=== PATIENT | male | born 1960 | race Caucasian/White ===

== ENCOUNTER 2020-06-25 13:14 | Outpatient (CLI) | payer BC, SELFPAY ==
--- NOTE | 2020-06-25 13:20 | XR_ITS ---
WS: [id number] Left foot, 3 views, 06/25/2020 Clinical Data: left heel pain Comparison: None. Findings: No fractures or dislocations are seen. No bone destruction or erosion is noted. The joint spaces and soft tissues are normal. There is a plantar spur and an Achilles spur. XR/XR foot LT min 3V* [id number] Impression: Calcaneal spurs.
== END 2020-06-25 13:15 | disposition home or self-care (01) ==
PROVIDERS: PCP Family Medicine; Visit Provider Family Medicine
DX: M77.32 Calcaneal spur, left foot (principal)
CPT/HCPCS: 73630

== ENCOUNTER → 2020-07-22 09:03 | Outpatient (BNVA) | payer BC, SELFPAY | PROVIDERS: PCP Family Medicine; Visit Provider Family Medicine | DX: E78.5 Hyperlipidemia, unspecified (principal); N52.9 Male erectile dysfunction, unspecified | CPT/HCPCS: 80053; 80061; 84403; 85025 ==

== ENCOUNTER 2020-08-30 14:02 | Outpatient (CLI) | payer BC, SELFPAY | END 2020-08-30 14:03 | disposition home or self-care (01) | LOC: SPT 14:02 | PROVIDERS: PCP Family Medicine; Visit Provider Podiatrist Foot & Ankle Surgery | DX: Z46.89 Encounter for fitting and adjustment of other specified devices (principal); M72.2 Plantar fascial fibromatosis | CPT/HCPCS: 97760; L4397 ==

== ENCOUNTER 2021-01-02 01:39 | Emergency (ER) | payer BC, SELFPAY ==
[2021-01-02 01:43] VITALS: BP 175/88; PULSE 72; RESP 18; TEMP 36.7; O2SAT 96; BMI 33.0
[2021-01-02 01:46] VITALS: BP 156/84; PULSE 69; RESP 16; O2SAT 95
--- NOTE | 2021-01-02 01:50 | XRR_ITS ---
PROCEDURE INFORMATION: Exam: XR Left Knee Exam date and time: 01/02/2021 1:50 AM Age: 60 years old Clinical indication: Pain; Swelling, leg or foot; Knee; Left; Prior surgery; Surgery date: 6+ months; Surgery type: Meniscus; Additional info: Pain, swelling TECHNIQUE: Imaging protocol: XR Left knee. Views: 3 views. COMPARISON: No relevant prior studies available. FINDINGS: Bones/joints: Mild medial compartment joint space narrowing. Moderate tricompartmental osteophytes. Large joint effusion. No acute fracture. Soft tissues: Visible soft tissues are unremarkable. XR/XR knee LT 3V* 04502 IMPRESSION: Large joint effusion and tricompartmental degenerative disease. Radiation Dose CTDIVOL = (mGy): DLP = (mGy-cm)
--- NOTE | 2021-01-02 01:51 | W.ED.EXTPRO ---
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 Says he cannot ambulate due to the pain. That is why he called the ambulance. Patient did arrive by ambulance. Denies any heat to the knee but says it has swelled a lot in the last day MD Complaint: joint swelling Onset (ago): day(s) Pain Consistency: constant Location: left and knee Severity scale (1-10): 9 Quality: aching Radiation: proximal Relieving factors: immobilization Exacerbating factors: range of motion and weight bearing Associated symptoms: Reports no associated symptoms; Deny chest pain, fever(s) or rash Review of Systems Const: Denies: fever(s), chills or body aches Eyes: Denies: change in vision or blurry vision ENMT: Denies: throat pain or nasal congestion Card: Denies: chest pain or dyspnea on exertion Resp: Denies: dyspnea, productive cough or non-productive cough GI: Denies: abdominal pain, nausea or vomiting : Denies: difficulty urinating Musc: Reports: joint pain (Left knee) and joint swelling; Denies: extremity pain Skin/Breast: Denies: rash Neuro: Denies: headache(s) Psych: Denies: anxiety or depression Daniel/Lymph: Denies: easy bruising [facility] ED PFSH: Medical History (Updated 01/02/21 @ 02:37 by RADHIKA Carbajal) Allergy to bee sting Bone spur of left foot Bone spur of right foot History of COVID-19 Hyperlipidemia Temporal arteritis syndrome Surgical History H/O knee surgery Left meniscus. Right meniscus. H/O removal of cyst BEHIND EAR History of appendectomy History of back surgery L4-L5 Family History Family/Other Cancer Social History (Reviewed 11/26/20 @ 13:19 by DALI Hudson Smoking and tobacco status: never smoked Alcohol intake: never Physical Exam Const: COMMON NORMALS: no acute distress, average body habitus and patient oriented x3 HENMT: COMMON NORMALS: normocephalic HEAD & SCALP: normal to inspection and normocephalic FACE & SINUS: normal facial exam Eye: COMMON NORMALS: conjunctivae normal GENERAL EYE: appearance normal, both eyes and all related structures CONJUNCTIVA: Yes conjunctivae normal Neck/C-Spine: COMMON NORMALS: no JVD Chest: COMMONS NORMALS: normal inspection of the chest Resp: COMMON NORMALS: normal respiratory effort and clear to auscultation bilaterally AUSCULTATION: clear to auscultation bilaterally Cardio: COMMON NORMALS: no JVD, regular rate and regular rhythm RATE: regular rate RHYTHM: regular rhythm GI: COMMON NORMALS: Normal to inspection, nondistended, normoactive bowel sounds present Extremity: COMMON NORMALS: normal to inspection and full ROM LEFT LOWER EXTREMITY: Yes knee joint (Appear swollen, tender to the suprapatellar area, decreased range of motion) Left knee: Yes other (No erythema or excess heat noted to the joint.) Neuro: COMMON NORMALS: patient oriented x3 Procedures Joint Aspiration/Injection Joint Asp./Inject. 1: Time Out Performed: Yes Side of body: left Joint Aspirated: knee Ultrasound Guidance: No Skin Prep: Povidone-Iodine1% Local Anesthetic: lidocaine 1% Amount of anesthesia used (mL): 3 Needle Size Used: 18G Fluid Obtained: turbid Total fluid obtained (mL): 60 Medication Injected, if any: Methylprednisolone Amount of medication injected (mL): 1 Patient Tolerated Procedure: well Complications: none Course Vital Signs: Vital signs: Vital Signs Temperature 98.1 F 01/02/21 01:43 Pulse Rate 68 01/02/21 02:55 Respiratory Rate 16 01/02/21 02:55 Blood Pressure 152/76 01/02/21 02:55 Pulse Oximetry 94 01/02/21 02:55 MDM - Extremity (Nontraumatic) MDM Narrative: Medical decision making narrative: Left knee joint effusion with arthritis. Joint aspiration was done under guidance Dr. Gibbs. 60 mils of turbid fluid was withdrawn. 40 of Depo-Medrol +2 and half mils lidocaine 1% was injected back into the knee. Patient tolerated procedure well. Aspiration fluid study reviewed from lab, 27,000 wbc, minimal rbc. Patient encouraged follow-up Dr. Balderas and discuss possible orthopedic referral Lab Data: Labs: Lab Results 01/02/21 02:36 Synovial Color Yellow (PALE YELLOW) Synovial Appearanc e Cloudy (CLEAR) Synovial WBC 05469 /uL H /uL (0-150) Synovial RBC 5 10^3/uL H 10^3/ uL (0-0) Synovial Mononucle ar 2.585 10^3/uL 10^ 3/uL Synov Polynuclear WBCs 24.482 10^3/uL 10 ^3/uL Synovial Other Melissa ls Not Reportable Synovial Polynucle ar % 90.500 % % Synovial Mononucle ar % 9.500 % % Path Cons w/Slide Yes Discharge Plan Discharge Patient Disposition: Home Clinical Impression: Effusion of knee joint, left, Tricompartment osteoarthritis of left knee Condition: Stable Prescriptions: New tramadol 50 mg tablet 50 mg PO TID PRN (Reason: pain) Qty: 7 RF: 0 No Action (DME) Night splint to the left foot See Rx Instructions .Route .MEDSUPPLY Qty: 1 RF: 0 epinephrine [EpiPen 2-Sarabjit] 0.3 mg/0.3 mL auto-injector 0.3 mg IM Q10M PRN (Reason: anaphylaxis) Qty: 2 RF: 0 atorvastatin 40 mg tablet 40 mg PO .AT BEDTIME Qty: 90 RF: 1 aspirin 81 mg tablet,delayed release (DR/EC) 81 mg PO DAILY RF: 0 cholecalciferol (vitamin D3) 25 mcg (1,000 unit) capsule 25 mcg PO DAILY RF: 0 arginine (L-arginine) 500 mg capsule PO RF: 0 Discharge Orders: Discharge ED (Routine); Ordered 01/02/21 Ordered By: Adonis Sawant Referrals: Tiara Balderas DO [Primary Care Provider] - Discharge Diet: Usual diet Discharge Activity: Increase activity as tolerated Patient Instructions: Osteoarthritis (ED), Swollen Knee Joint (ED), Opioid Safety Activity Restrictions/Additional Instructions: Follow-up with medical provider as directed. Take medications as prescribed. Return to the ER or your medical provider if condition worsens. Please read and understand discharge instructions. If any questions ask please. 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 Right meniscus. H/O removal of cyst BEHIND EAR History of appendectomy History of back surgery L4-L5 Family History Family/Other Cancer Social History Smoking and tobacco status: never smoked Alcohol intake: never Course Vital Signs: Vital signs: Vital Signs Temperature 98.1 F 01/02/21 01:43 Pulse Rate 68 01/02/21 02:55 Respiratory Rate 16 01/02/21 02:55 Blood Pressure 152/76 01/02/21 02:55 Pulse Oximetry 94 01/02/21 02:55 MDM - Extremity (Nontraumatic) MDM Narrative: Medical decision making narrative: This patient was originally seen by RADHIKA Dahl. I agree with his history, evaluation, and treatment. As synovial fluid analysis showed 90% neutrophils with 27,000 white blood cell count, but in the absence of clinical signs of septic joint, culture obtained on the fluid. Will await results before starting any antibiotics. Close outpatient follow-up as above Lab Data: Labs: Lab Results 01/02/21 02:36 Synovial Color Yellow (PALE YELLOW) Synovial Appearanc e Cloudy (CLEAR) Synovial WBC 57153 /uL H /uL (0-150) Synovial RBC 5 10^3/uL H 10^3/ uL (0-0) Synovial Mononucle ar 2.585 10^3/uL 10^ 3/uL Synov Polynuclear WBCs 24.482 10^3/uL 10 ^3/uL Synovial Other Melissa ls Not Reportable Synovial Polynucle ar % 90.500 % % Synovial Mononucle ar % 9.500 % % Path Cons w/Slide Yes Discharge Plan Discharge Patient Disposition: Home Clinical Impression: Effusion of knee joint, left, Tricompartment osteoarthritis of left knee Condition: Stable Prescriptions: New tramadol 50 mg tablet 50 mg PO TID PRN (Reason: pain) Qty: 7 RF: 0 No Action (DME) Night splint to the left foot See Rx Instructions .Route .MEDSUPPLY Qty: 1 RF: 0 epinephrine [EpiPen 2-Sarabjit] 0.3 mg/0.3 mL auto-injector 0.3 mg IM Q10M PRN (Reason: anaphylaxis) Qty: 2 RF: 0 atorvastatin 40 mg tablet 40 mg PO .AT BEDTIME Qty: 90 RF: 1 aspirin 81 mg tablet,delayed release (DR/EC) 81 mg PO DAILY RF: 0 cholecalciferol (vitamin D3) 25 mcg (1,000 unit) capsule 25 mcg PO DAILY RF: 0 arginine (L-arginine) 500 mg capsule PO RF: 0 Discharge Orders: Discharge ED (Routine); Ordered 01/02/21 Ordered By: Adonis Sawant Referrals: Tiara Balderas DO [Primary Care Provider] - Discharge Diet: Usual diet Discharge Activity: Increase activity as tolerated Patient Instructions: Osteoarthritis (ED), Swollen Knee Joint (ED), Opioid Safety Activity Restrictions/Additional Instructions: Follow-up with medical provider as directed. Take medications as prescribed. Return to the ER or your medical provider if condition worsens. Please read and understand discharge instructions. If any questions ask please. 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
[2021-01-02] MEDS: lidocaine 1% INJ 20 mL INTRADERMA (02:30)
[2021-01-02] MEDS: methylPREDNISolone (DEPO) 40 mg/mL INJ 1 mL IM (02:30)
[2021-01-02] MEDS: TRAMadol 50 mg Tablet PO (02:35)
[2021-01-02 02:40] LABS: RBC Synovial Fluid 5 10^3/uL (0-0); Synovial Fluid Mononuclear # 2.585 10^3/uL; Synovial Fluid Polynuclear # 24.482 10^3/uL; WBC Synovial Fluid 27067 /uL (0-150)
[2021-01-02 02:44] LABS: Appearance Synovial Fluid CLOUDY (CLEAR); Color Synovial Fluid YELLOW (PALE YELLOW); PATH Referal YES
[2021-01-02 02:55] VITALS: BP 152/76; PULSE 68; RESP 16; O2SAT 94
== END 2021-01-02 02:56 | disposition home or self-care (01) ==
PROVIDERS: Emergency Provider Nurse Practitioner Family; PCP Family Medicine
DX: M17.12 Unilateral primary osteoarthritis, left knee (principal); M25.462 Effusion, left knee
CPT/HCPCS: 20610; 73562; 80500; 87070; 87075; 87205; 89050; 96372; 99283; J1030

== ENCOUNTER → 2021-07-12 10:04 | Outpatient (BNVA) | payer BC, SELFPAY | PROVIDERS: PCP Family Medicine; Visit Provider Family Medicine | DX: E78.5 Hyperlipidemia, unspecified (principal); R35.1 Nocturia; N52.9 Male erectile dysfunction, unspecified; N52.8 Other male erectile dysfunction; Z12.11 Encounter for screening for malignant neoplasm of colon | CPT/HCPCS: 80053; 80061; 84153; 84403; 85025 ==

== ENCOUNTER 2022-02-20 08:44 | Day surgery (SDC) | payer BC, SELFPAY ==
[2022-02-17 09:05] VITALS: BMI 31.5
[2022-02-20 09:01] VITALS: BP 139/87; PULSE 70; RESP 18; TEMP 36.1; O2SAT 94
[2022-02-20] MEDS: sodium chloride 0.9% 1,000 ML 30 ML IV (09:06)
--- NOTE | 2022-02-20 10:09 | ANES.PREANE2 ---
Pre-Anesthetic Assessment Height/Weight: Height 1.78 m Weight 99.79 kg Temp Pulse Resp BP Pulse Ox O2 Del Method 97.0 F L 70 18 139/87 94 02/20/22 09:01 02/20/22 09:01 02/20/22 09:01 02/20/22 09:01 02/20/22 09:01 02/20/22 09:01 Preop Diagnosis: screening Operation Date: 02/20/22 10:30 Proposed Procedures p Colonoscopy 22875,Z12.11(Not Applicable) - Jared Muir DO Familial anesthetic complications: none Was Beta Mane taken within 24 hours: N/A Was Clonidine taken within 24 hours: N/A Last intake: Intake Last Liquid Date 02/19/22 Last Liquid Time 22:00 Last Solid Date 02/18/22 Last Solid Time 23:00 Last Intake: 22:00 Social No alcohol and No tobacco Exam alert, oriented x 3, clear to auscultation bilaterally and regular rate & rhythm Airway Submandibular: within normal limits Cervical ROM: within normal limits Mallampati: Class II Dentition: full Pulmonary None reported CV/HEM None reported None reported Hepatic None reported GI None reported Metabolic Morbid Obesity [facility] [place] Lower Back Pain and Osteoarthritis/DJD Neuropsych None reported Anesthetic Plan ASA status: 2 Anesthesia: MAC Medications/Allergies Home Medications Medication Instructions Recorded Confirmed Last Taken Type cholecalciferol (vitamin D3) 25 25 mcg PO DAILY 06/24/20 02/17/22 02/18/22 History mcg (1,000 unit) capsule epinephrine 0.3 mg/0.3 mL 0.3 mg (0.3 mL) IM Q10M PRN 11/26/20 02/20/22 Unknown Rx injection, auto-injector (EpiPen anaphylaxis #2 ea 2-Sarabjit) atorvastatin 80 mg tablet 80 mg PO QPM 02/17/22 02/17/22 02/18/22 History multivitamin 1 tab PO DAILY 02/17/22 02/17/22 02/18/22 History Allergies Allergy/AdvReac Type Severity Reaction Status Date / Time bee venom protein (honey bee) Allergy ALGY-Anaphy Verified 02/17/22 09:02 laxis codeine Allergy RASH Verified 02/17/22 08:59 ibuprofen [From Motrin] Allergy ITCHING Verified 02/17/22 08:59 Penicillins Allergy HIVES Verified 02/17/22 08:59 meperidine [From Demerol] AdvReac Mild STOPPED Verified 02/17/22 08:59 HEART Current Medications Generic Name Dose Route Start Last Admin Trade Name Beatrice PRN Reason Stop Dose Admin Sodium Chloride 1,000 mls @ 30 mls/hr 02/20/22 09:00 02/20/22 09:06 Sodium Chloride 0.9% IV 02/21/22 08:59 30 mls/hr .Q24H HAN Administration PFSH Anesthesia Medical History Allergy to bee sting Bone spur of left foot Bone spur of right foot History of COVID-19 Hyperlipidemia Temporal arteritis syndrome Surgical History H/O knee surgery Left meniscus. Right meniscus. H/O removal of cyst BEHIND EAR History of appendectomy History of back surgery L4-L5 Family History Family/Other Cancer Social History Smoking and tobacco status: never smoked Alcohol intake: never Data Anesthesia Cardiac Studies: No Data to Display
--- NOTE | 2022-02-20 10:35 | P.HP_ITS ---
Providers/Chief Complaint Primary Care Provider: Tiara Balderas DO Chief Complaint: Z12.11 History of Present Illness Drake Romeo is a 61 year old male who is here for a screening colonoscopy. His last colonoscopy was 11 years ago and was within normal limits. He denies any abdominal pain, diarrhea, constipation, hematochezia and/or melena. Denies any family history of colon cancer Review of Systems General: Reports: 10 or more systems reviewed and unremarkable except in HPI and below Medications/Allergies Home Medications Medication Instructions Recorded Confirmed Last Taken Type cholecalciferol (vitamin D3) 25 25 mcg PO DAILY 06/24/20 02/17/22 02/18/22 History mcg (1,000 unit) capsule epinephrine 0.3 mg/0.3 mL 0.3 mg (0.3 mL) IM Q10M PRN 11/26/20 02/20/22 Unknown Rx injection, auto-injector (EpiPen anaphylaxis #2 ea 2-Sarabjit) atorvastatin 80 mg tablet 80 mg PO QPM 02/17/22 02/17/22 02/18/22 History multivitamin 1 tab PO DAILY 02/17/22 02/17/22 02/18/22 History Allergies Allergy/AdvReac Type Severity Reaction Status Date / Time bee venom protein (honey bee) Allergy ALGY-Anaphy Verified 02/17/22 09:02 laxis codeine Allergy RASH Verified 02/17/22 08:59 ibuprofen [From Motrin] Allergy ITCHING Verified 02/17/22 08:59 Penicillins Allergy HIVES Verified 02/17/22 08:59 meperidine [From Demerol] AdvReac Mild STOPPED Verified 02/17/22 08:59 HEART PFSH Acute PFSH: Medical History Allergy to bee sting Bone spur of left foot Bone spur of right foot History of COVID-19 Hyperlipidemia Temporal arteritis syndrome Surgical History H/O knee surgery Left meniscus. Right meniscus. H/O removal of cyst BEHIND EAR History of appendectomy History of back surgery L4-L5 Family History Family/Other Cancer Social History Smoking and tobacco status: never smoked Alcohol intake: never Vitals/I&O/Wt Last Vital Signs Temp 97.0 F L 02/20/22 09:01 Pulse 70 02/20/22 09:01 Resp 18 02/20/22 09:01 BP 139/87 02/20/22 09:01 Pulse Ox 94 02/20/22 09:01 O2 Del Method 02/20/22 09:01 Physical Exam Narrative: General : Patient is well developed , no acute distress, oriented x3 Head : Normal cephalic, a-traumatic. Ears : Pinnae and external canal are normal. Hearing is normal. Eyes : PERRLA, Sclera and injection are normal. No conjunctival discharge. Nose : Mucous membranes are without erythema. Throat : buccal mucosa is normal, gums are without significant recession or hypertrophy. Lungs : Equal chest rise bilaterally, no use of accessory muscles, trachea is midline. Cor : Rate and rhythm are normal. Abdomen : Soft, ND, NT, no g/r/m Extremities : No edema, no cyanosis or clubbing, dorsalis pedis pulses are present bilaterally, non-tender to palpation of calves. Upper extremities are normal bilaterally. Back : non-tender to palpation, no CVA tenderness. Neuro : CN II - XII intact, Upper and lower extremities have equal and full strength A&P Assessment and plan (1) Encounter for screening colonoscopy: Plan Colonoscopy The risks and benefits of the procedure, including bleeding, infection, intestinal perforation requiring surgery, missed lesion were explained to the patient. He is understanding of the risks and wishes to proceed. 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
[2022-02-20 10:58] VITALS: BP 130/81; PULSE 70; RESP 12; TEMP 36.1; O2SAT 97
[2022-02-20 11:07] VITALS: BP 130/83; PULSE 67; RESP 14; O2SAT 98
[2022-02-20 11:26] VITALS: BP 109/72; PULSE 61; RESP 14; O2SAT 92
[2022-02-20 11:32] VITALS: BP 134/78; PULSE 63; RESP 16; O2SAT 93
--- NOTE | 2022-02-20 14:22 | ANE.PACU2 ---
Inpatient post-anesthesia follow up: Airway intact: Yes Vital signs: Temperature 97 F Pulse Rate 63 Respiratory Rate 16 Blood Pressure 134/78 Pulse Oximetry 93 Oxygen Delivery Me thod Room Air Oxygen Flow Rate Fraction of Inspir ed Oxygen Hydration adequate: Yes Nausea and vomiting: No Pain level: 1 Mental status: Baseline
== END 2022-02-20 11:41 | disposition home or self-care (01) ==
PROVIDERS: PCP Family Medicine; Visit Provider Surgery
PROC: 0DJD8ZZ Inspection of Lower Intestinal Tract, Via Natural or Artificial Opening Endoscopic (ICD-10-PCS; CPT 45378; principal; 2022-02-20 10:30)
DX: Z12.11 Encounter for screening for malignant neoplasm of colon (principal); D12.8 Benign neoplasm of rectum; E78.5 Hyperlipidemia, unspecified; Z86.16 Personal history of COVID-19; E66.01 Morbid (severe) obesity due to excess calories; Z68.31 Body mass index [BMI] 31.0-31.9, adult
CPT/HCPCS: 45385; 88305; J2704; J7030

== ENCOUNTER 2022-10-24 17:48 | Emergency (ER) | payer BC, SELFPAY ==
[2022-10-24 17:59] VITALS: BP 173/114; PULSE 68; RESP 16; TEMP 36.5; O2SAT 97; BMI 32.3
--- NOTE | 2022-10-24 18:34 | W.ED.ALLEREA ---
HPI - Allergic Reaction General: Chief complaint: Allergic Reaction Stated complaint: stung, allergic reaction, throat closing History of Present Illness: HPI narrative: 62-year-old male presents emergency room with abnormal throat sensation and shortness of breath after he was stung by yellow jacket. Patient further refused around 4 PM he was walking in the yard when he was stung by yellow jacket around his right ankle. He denies any rash or lesions at this time. Is any chest pain, vomiting, fever or chills. Review of Systems General: Reports: 10 or more systems reviewed and unremarkable except in HPI and below Resp: Reports: dyspnea; Denies: non-productive cough, wheezing, stridor, pain on inspiration, change in phlegm color, hemoptysis or chest congestion Skin/Breast: Reports: other (right ankle swelling and mild redness ) [facility] ED PFSH: Medical History Allergy to bee sting Bone spur of left foot Bone spur of right foot History of COVID-19 Hyperlipidemia Temporal arteritis syndrome Surgical History H/O knee surgery Left meniscus. Right meniscus. H/O removal of cyst BEHIND EAR History of appendectomy History of back surgery L4-L5 Family History Family/Other Cancer Social History Smoking and tobacco status: never smoked Alcohol intake: never Substance/Drug Use: never Physical Exam Const: COMMON NORMALS: no acute distress, average body habitus, patient oriented x3, no limitations, healthy appearing, alert and well nourished HENMT: COMMON NORMALS: normocephalic, atraumatic, hearing grossly normal bilaterally, external ears normal, EAC's normal, TM's normal bilaterally, Normal external nose present, Normal nasal mucous membranes and turbinates present, moist oral mucous membranes, oropharynx normal, dentition normal and gingiva normal HEAD & SCALP: normocephalic and atraumatic NOSE: Normal external nose present and Normal nasal mucous membranes and turbinates present EXTERNAL EAR: Yes external ears normal EXTERNAL AUDITORY CANAL: EAC's normal TYMPANIC MEMBRANE: TM's normal bilaterally Eye: COMMON NORMALS: Equal, round and reactive pupils present, EOMs intact bilaterally, conjunctivae normal, no scleral icterus, no papilledema, normal visual gutiérrez by confrontation and fundi normal bilaterally CONJUNCTIVA: Yes conjunctivae normal PUPIL: Yes Equal, round and reactive pupils present DIRECT OPHTHALMOSCOPY: Yes no papilledema and Yes fundi normal bilaterally Neck/C-Spine: COMMON NORMALS: no JVD Chest: COMMONS NORMALS: normal inspection of the chest, normal palpation of entire chest wall, normal inspection of the breasts and normal palpation of the breasts Breast/axilla inspection: Yes normal inspection of the breasts BREAST/AXILLA PALPATION: Yes normal palpation of the breasts Resp: COMMON NORMALS: normal respiratory effort, No retractions, No use of accessory muscles, clear to auscultation bilaterally and percussion normal AUSCULTATION: clear to auscultation bilaterally PERCUSSION: percussion normal Cardio: COMMON NORMALS: no JVD, regular rate, regular rhythm, S1 normal heart sound present, S2 normal heart sound present, No gallops present (Cardio), No clicks present (Cardio), No murmurs present (Cardio), No rub (Cardio) and Peripheral pulses 2+ throughout RATE: regular rate RHYTHM: regular rhythm HEART SOUNDS: S1 normal heart sound present and S2 normal heart sound present PERIPHERAL PULSES: Peripheral pulses 2+ throughout Neuro: COMMON NORMALS: patient oriented x3 SENSORIUM/ORIENTATION: Yes alert Skin: COMMON NORMALS: no rashes or lesions noted, no wounds, turgor normal, no jaundice, no petechiae and no mottling GENERAL SKIN EXAM: no rashes or lesions noted and turgor normal OTHER: Right right ankle with some mild swelling and hives on the lateral aspect. Course Reevaluation(s): Reevaluation #1: Patient was stable without acute distress. at bedside. Reevaluation #2: Patient was awake alert and was able to drink without any difficulties. Reevaluation #3: Patient has improved significantly without any acute distress. Family at bedside. Vital Signs: Vital signs: Vital Signs Temperature 97.7 F 10/24/22 17:59 Pulse Rate 68 10/24/22 17:59 Respiratory Rate 16 10/24/22 17:59 Blood Pressure 173/114 10/24/22 17:59 Pulse Oximetry 97 10/24/22 17:59 Oxygen Delivery Me thod Room Air 10/24/22 17:59 MDM - Allergic Reaction Medical Decision Making Patient was made comfortable emergency room. Patient was given Benadryl, epi, Solu-Medrol and Pepcid. I discussed the plan and disposition plan with . Patient was monitored here for few hours. Upon reassessment patient was stable with any acute distress. Differential Diagnosis Likely anaphylaxis, allergic reaction, angioedema, contact dermatitis, adverse reaction to drug, viral enanthem and urticaria Lab Data 10/24/22 18:20 10/24/22 18:20 Laboratory Results WBC 11.8 10^3/uL (4.0-10.0) H 10/24/22 18:20 RBC 5.37 10^6/uL (4.1-5.3) H 10/24/22 18:20 Hgb 16.1 g/dL (11.7-16.6) 10/24/22 18:20 Hct 47.9 % (42.0-52.0) 10/24/22 18:20 MCV 89.2 fl (80-94) 10/24/22 18:20 MCH 30.0 pg (28.0-34.0) 10/24/22 18:20 MCHC 33.6 g/dL (30.0-36.0) 10/24/22 18:20 RDW 12.5 % (12.1-15.1) 10/24/22 18:20 Plt Count 243 10^3/cmm (130-400) 10/24/22 18:20 MPV 9.5 fL (7.4-10.4) 10/24/22 18:20 Neut % (Auto) 64.1 % 10/24/22 18:20 Lymph % (Auto) 24.7 % 10/24/22 18:20 [place] % (Auto) 8.9 % 10/24/22 18:20 Eos % (Auto) 1.8 % 10/24/22 18:20 Baso % (Auto) 0.2 % 10/24/22 18:20 Neut # (Auto) 7.54 10^3/uL (1.8-7.7) 10/24/22 18:20 Lymph # (Auto) 2.9 10^3/uL (0.8-4.8) 10/24/22 18:20 [place] # (Auto) 1.1 10^3/uL (0.2-0.9) H 10/24/22 18:20 Eos # (Auto) 0.2 10^3/uL (0.0-0.8) 10/24/22 18:20 Baso # (Auto) 0.0 10^3/uL (0.0-0.1) 10/24/22 18:20 Nucleated RBC % (auto) 0 % 10/24/22 18:20 Nucleated RBCs # 0.0 /100WBC 10/24/22 18:20 Sodium 142 mmol/L (136-145) 10/24/22 18:20 Potassium 4.0 mmol/L (3.5-5.1) 10/24/22 18:20 Chloride 103 mmol/L (98-107) 10/24/22 18:20 Carbon Dioxide 26 mmol/L (22-29) 10/24/22 18:20 Anion Gap 17.0 (5-19) 10/24/22 18:20 BUN 17 mg/dL (8-23) 10/24/22 18:20 Creatinine 0.9 mg/dL (0.7-1.2) 10/24/22 18:20 GFR Calculation 85.5 mL/min (90-130) L 10/24/22 18:20 Glucose 105 mg/dL (65-115) 10/24/22 18:20 Calculated Osmolality 296 mOsm/kg (285-295) H 10/24/22 18:20 Calcium 9.5 mg/dL (8.5-10.5) 10/24/22 18:20 Total Bilirubin 0.5 mg/dL (0.15-1.2) 10/24/22 18:20 AST 32 U/L (0-40) 10/24/22 18:20 ALT 37 U/L (0-41) 10/24/22 18:20 Alkaline Phosphatase 106 U/L (40-130) 10/24/22 18:20 Total Protein 8.1 g/dL (6.6-8.7) 10/24/22 18:20 Albumin 4.6 g/dL (3.5-5.2) 10/24/22 18:20 Globulin 3.5 g/dL (1.3-4.6) 10/24/22 18:20 Critical Care Time Critical Care Time: Critical Care Time: Yes Total Critical Care Time: 45 Attestation: Patient made comfortable emergency room. Time spent discussing patient with family. Time spent examining patient regimen patient multiple times. Time spent to review labs. Discharge Plan Discharge Patient Disposition: Home Clinical Impression: Allergy to bee sting, Allergic reaction Condition: Stable Prescriptions: New methylprednisolone [Medrol (Sarabjit)] 4 mg tablets,dose pack 4 mg PO DAILY Qty: 21 0RF No Action epinephrine [EpiPen 2-Sarabjit] 0.3 mg/0.3 mL auto-injector 0.3 mg IM Q10M PRN (Reason: anaphylaxis) Qty: 2 0RF Rx Instructions: for 3 doses 340 B cholecalciferol (vitamin D3) 25 mcg (1,000 unit) capsule 25 mcg PO DAILY atorvastatin 80 mg tablet See Rx Instructions .ROUTE .COMPLEX Qty: 30 0RF Dose Instruction: TAKE 1 TABLET BY MOUTH AT BEDTIME Rx Instructions: TAKE 1 TABLET BY MOUTH AT BEDTIME multivitamin Tablet 1 tab PO DAILY Discharge Orders: Discharge ED (Routine); Ordered 10/24/22 Ordered By: Sonido Sandoval Referrals: Tiara Balderas DO [Primary Care Provider] - Discharge Diet: Advance as tolerated Discharge Activity: Resume usual activity Patient Instructions: Opioid Safety, Pain Management Activity Restrictions/Additional Instructions: Patient reveals that he has EpiPen at home. he was encouraged to use EpiPen next time he has had an allergic reaction Coding Level of Care Code ED [employer] for Everardo Cantu
[2022-10-24] MEDS: diphenhydrAMINE 50 mg/mL SDV 1mL IVP (18:36)
[2022-10-24] MEDS: methylPREDNISolone sod succ 125 MG in water for injection-sterile 2 ML 24 MG IVP (18:36)
[2022-10-24] MEDS: EPINEPHrine 1 mg/mL INJ 0.3 MG IM (18:36)
[2022-10-24] MEDS: famotidine 20 mg/2 mL INJ IVP (18:42)
[2022-10-24 19:04] VITALS: BP 168/86; PULSE 77; RESP 24; O2SAT 94
[2022-10-24 19:19] VITALS: BP 131/100; PULSE 80; RESP 16; O2SAT 95
[2022-10-24 19:34] VITALS: BP 150/90; PULSE 78; RESP 19; O2SAT 95
[2022-10-24 19:34] LABS: Basophils % 0.2 %; Eosinophils # 0.2 10^3/uL (0.0-0.8); Eosinophils % 1.8 %; Hematocrit 47.9 % (42.0-52.0); Hemoglobin 16.1 g/dL (11.7-16.6); Lymphocytes # 2.9 10^3/uL (0.8-4.8); Lymphocytes % 24.7 %; Mean Corpuscular HGB Conc 33.6 g/dL (30.0-36.0); Mean Corpuscular Volume 89.2 fl (80-94); Mean Platelet Volume 9.5 fL (7.4-10.4); Monocytes # 1.1 10^3/uL (0.2-0.9); Monocytes % 8.9 %; Neutrophils # 7.54 10^3/uL (1.8-7.7); Neutrophils % 64.1 %; Nucleated Red Blood Cells % 0 %; Platelet Count 243 10^3/cmm (130-400); Red Blood Count 5.37 10^6/uL (4.1-5.3); Red Cell Distribution Width 12.5 % (12.1-15.1); White Blood Count 11.8 10^3/uL (4.0-10.0)
[2022-10-24 19:57] LABS: Alanine Aminotransferase 37 U/L (0-41); Albumin Level 4.6 g/dL (3.5-5.2); Alkaline Phosphatase 106 U/L (40-130); Aspartate Amino Transferase 32 U/L (0-40); Blood Urea Nitrogen 17 mg/dL (8-23); Calcium 9.5 mg/dL (8.5-10.5); Carbon Dioxide 26 mmol/L (22-29); Chloride 103 mmol/L (98-107); Globulin 3.5 g/dL (1.3-4.6); Glomerular Filtration Rate 85.5 mL/min (90-130); Glucose 105 mg/dL (65-115); Osmolality Calculated 296 mOsm/kg (285-295); Sodium 142 mmol/L (136-145); Total Bilirubin 0.5 mg/dL (0.15-1.2); Total Protein 8.1 g/dL (6.6-8.7)
[2022-10-24 20:04] VITALS: BP 156/74; PULSE 80; RESP 18; O2SAT 90
[2022-10-24 20:40] VITALS: BP 151/73; PULSE 81; RESP 22; O2SAT 92
== END 2022-10-24 20:49 | disposition home or self-care (01) ==
PROVIDERS: Emergency Provider Family Medicine; PCP Family Medicine
DX: T63.461A Toxic effect of venom of wasps, accidental (unintentional), initial encounter (principal); E78.5 Hyperlipidemia, unspecified
CPT/HCPCS: 80053; 85025; 96365; 96372; 96375; 99284; J0171; J1200; J2930; J3490

== ENCOUNTER 2022-12-04 15:24 | Outpatient (CLI) | payer BC, SELFPAY ==
--- NOTE | 2022-12-04 15:37 | XRR_ITS ---
PROCEDURE INFORMATION: Exam: XR Chest Exam date and time: 12/04/2022 3:45 PM Age: 62 years old Clinical indication: Cough; Additional info: Chronic cough TECHNIQUE: Imaging protocol: Radiologic exam of the chest. Views: 2 views. COMPARISON: No relevant prior studies available. FINDINGS: Lungs: Unremarkable. No consolidation. Pleural spaces: Unremarkable. No pleural effusion. No pneumothorax. Heart/Mediastinum: Unremarkable. No cardiomegaly. Bones/joints: Unremarkable. XR/XR chest 2V* [id number] IMPRESSION: No acute findings.
== END 2022-12-04 15:25 | disposition home or self-care (01) ==
PROVIDERS: PCP Family Medicine; Visit Provider Family Medicine
DX: Z13.6 Encounter for screening for cardiovascular disorders (principal); R05.3 Chronic cough; E78.2 Mixed hyperlipidemia; R35.1 Nocturia
CPT/HCPCS: 71046; 80061; 84153; 84443; 85025

== ENCOUNTER 2023-01-24 10:35 | Day surgery (SDC) | payer BC, SELFPAY ==
[2023-01-24 10:45] VITALS: BP 152/86; PULSE 67; RESP 16; TEMP 36.2; O2SAT 94
--- NOTE | 2023-01-24 10:57 | P.ANESASSM_ITS ---
Pre-Anesthetic Assessment Height/Weight: Height 1.78 m Operation Date: 01/24/23 11:00 Proposed Procedures p 40313 egd balloon dialation r13.10(Not Applicable) - Jared Muir DO Familial anesthetic complications: Recieved lauraerol at age 21 for knee surgery in pre op and says that his heart stopped, but they proceeded with the surgery that day Was Beta Mane taken within 24 hours: N/A Was Clonidine taken within 24 hours: N/A Social No alcohol and No tobacco Exam alert, oriented x 3, clear to auscultation bilaterally and regular rate & rhythm Airway Mallampati: Class II Dentition: full Metabolic Hyperlipidemia Anesthetic Plan ASA status: 2 Anesthesia: MAC Risk of > 500 ml blood loss (7ml/kg in children): No Medications/Allergies Home Medications Medication Instructions Recorded Confirmed Last Taken Type cholecalciferol (vitamin D3) 25 25 mcg PO DAILY 06/24/20 01/24/23 01/23/23 History mcg (1,000 unit) capsule multivitamin 1 tab PO DAILY 02/17/22 01/24/23 01/23/23 History epinephrine 0.3 mg/0.3 mL 0.3 mg (0.3 mL) IM Q10M PRN 12/04/22 01/24/23 11/13/22 Rx injection, auto-injector (EpiPen anaphylaxis #2 ea 2-Sarabjit) atorvastatin 80 mg tablet 80 mg PO DAILY 01/23/23 01/24/23 01/23/23 History Allergies Allergy/AdvReac Type Severity Reaction Status Date / Time bee venom protein (honey bee) Allergy ALGY-Anaphy Verified 01/23/23 11:47 laxis codeine Allergy RASH Verified 01/23/23 11:47 ibuprofen [From Motrin] Allergy ITCHING Verified 01/23/23 11:47 Penicillins Allergy HIVES Verified 01/23/23 11:47 meperidine [From Demerol] AdvReac Mild STOPPED Verified 01/23/23 11:47 HEART [facility] Anesthesia Medical History Allergy to bee sting Bone spur of left foot Bone spur of right foot History of COVID-19 Hyperlipidemia Temporal arteritis syndrome Surgical History H/O knee surgery Left meniscus. Right meniscus. H/O removal of cyst BEHIND EAR History of appendectomy History of back surgery L4-L5 Family History Family/Other Cancer Social History Smoking and tobacco/nicotine status: never used tobacco/nicotine Alcohol intake: never Substance/Drug Use: never Data Anesthesia Cardiac Studies: No Data to Display
[2023-01-24] MEDS: sodium chloride 0.9% 1,000 ML 30 ML IV (11:24)
[2023-01-24 11:25] VITALS: BMI 35.9
--- NOTE | 2023-01-24 12:51 | W.PM.OPSUD ---
Surgery/Procedure H&P Update DATE OF PROCEDURE: January 24, 2023 DATE H&P PERFORMED: 01/23/23 H&P UPDATE INFORMATION: I have reviewed H&P completed within last 30 days, I have examined patient prior to procedure and No changes to prior documentation PLANNED PROCEDURE: Operation Date: 01/24/23 11:00 Proposed Procedures p 32752 egd balloon dialation r13.10(Not Applicable) - Jared Muir, DO
[2023-01-24 13:15] VITALS: BP 125/73; PULSE 68; RESP 18; TEMP 36.2; O2SAT 93
[2023-01-24 13:20] VITALS: BP 104/69; PULSE 66; RESP 18; O2SAT 97
[2023-01-24 13:30] VITALS: BP 124/74; PULSE 65; RESP 18; O2SAT 98
[2023-01-24 13:35] VITALS: O2SAT 96
--- NOTE | 2023-01-24 13:35 | ANE.PACU2 ---
Inpatient post-anesthesia follow up: Airway intact: Yes Vital signs: Temperature 97.2 F Pulse Rate 65 Respiratory Rate 20 Blood Pressure 138/81 Pulse Oximetry 94 Oxygen Delivery Me thod Room Air Oxygen Flow Rate 4 Fraction of Inspir ed Oxygen Hydration adequate: Yes Nausea and vomiting: No Pain level: 1 Mental status: Baseline
[2023-01-24 13:40] VITALS: BP 138/81; PULSE 65; RESP 20; O2SAT 94
== END 2023-01-24 13:56 | disposition home or self-care (01) ==
PROVIDERS: PCP Family Medicine; Visit Provider Surgery
DX: R13.10 Dysphagia, unspecified (principal); K22.2 Esophageal obstruction; K29.50 Unspecified chronic gastritis without bleeding; K29.80 Duodenitis without bleeding; E78.5 Hyperlipidemia, unspecified
CPT/HCPCS: 43239; 43249; 88305; J2704; J3010; J7030

== ENCOUNTER → 2023-01-25 14:04 | Outpatient (BNVA) | payer BC, SELFPAY | PROVIDERS: PCP Family Medicine; Visit Provider Nurse Practitioner Family | DX: M25.562 Pain in left knee (principal); M23.92 Unspecified internal derangement of left knee | CPT/HCPCS: 73562 ==

== ENCOUNTER → 2023-02-09 08:01 | Outpatient (BNVA) | payer BC, SELFPAY | PROVIDERS: PCP Family Medicine; Referring Provider Nurse Practitioner Family; Visit Provider Nurse Practitioner | DX: M17.12 Unilateral primary osteoarthritis, left knee; G89.29 Other chronic pain | CPT/HCPCS: 73560; 73565 ==

== ENCOUNTER → 2023-03-14 11:01 | Outpatient (BNVA) | payer BC, SELFPAY | PROVIDERS: PCP Family Medicine; Visit Provider Nurse Practitioner | DX: Z01.818 Encounter for other preprocedural examination (principal); M17.12 Unilateral primary osteoarthritis, left knee; M25.562 Pain in left knee; G89.29 Other chronic pain | CPT/HCPCS: 36415; 80053; 81003; 83036; 85025 ==

== ENCOUNTER → 2023-04-25 16:44 | Outpatient (BNVA) | payer BC, SELFPAY | PROVIDERS: PCP Family Medicine; Visit Provider Specialist | DX: M17.12 Unilateral primary osteoarthritis, left knee (principal); Z01.818 Encounter for other preprocedural examination | CPT/HCPCS: 80053; 81003; 85025 ==

== ENCOUNTER 2023-05-23 16:12 | Outpatient (CLI) | payer BC, SELFPAY ==
--- NOTE | 2023-05-23 16:30 | CT_ITS ---
WS: [id number] CT LEFT knee, noncontrast HISTORY: M17.12 - Unilateral primary osteoarthritis, left knee TECHNIQUE: Protocol for MIRTA total knee replacement has been obtained. This includes axial imaging th rough the LEFT hip, LEFT knee and LEFT ankle. DLP: 927.36 mGy COMPARISON: Knee radiograph 02/09/2023 Mild SI joint arthritis. No LEFT hip fracture. LEFT knee: Moderate tricompartment osteoarthritis. No fractures. Small suprapatellar joint effusion. There is also a small amount of edema along the anterior knee. LEFT ankle: Negative. IMPRESSION: CT imaging provided for MIRTA robotic LEFT total knee replacement.
== END 2023-05-23 16:13 | disposition home or self-care (01) ==
LOC: RAD 16:12
PROVIDERS: PCP Family Medicine; Visit Provider Specialist
DX: M17.12 Unilateral primary osteoarthritis, left knee (principal)
CPT/HCPCS: 73700

== ENCOUNTER → 2023-05-30 10:35 | Outpatient (BNVA) | payer BC, SELFPAY | PROVIDERS: PCP Family Medicine; Visit Provider Family Medicine | DX: Z01.818 Encounter for other preprocedural examination (principal) | CPT/HCPCS: 80048; 81003; 85025 ==

== ENCOUNTER → 2023-05-31 09:04 | Outpatient (BNVA) | payer BC, SELFPAY | PROVIDERS: PCP Family Medicine; Visit Provider Family Medicine | DX: Z01.818 Encounter for other preprocedural examination (principal) | CPT/HCPCS: 87086 ==

== ENCOUNTER 2023-06-07 12:00 | Observation (INO) | payer BC, SELFPAY ==
[2023-06-07] VITALS (16 sets, daily range): BP systolic 124–143; BP diastolic 69–101; PULSE 66–84; RESP 12–20; TEMP 36.4–36.8; O2SAT 91–96; BMI 35.9; BMI 37.0
[2023-06-07] MEDS: sodium chloride 0.9% 1,000 ML 30 ML IV (06:53)
[2023-06-07] MEDS: acetaminophen 1,000 MG/100 ML PIGGYBACK 400 MG IV ×3 (06:53→20:45)
--- NOTE | 2023-06-07 06:55 | P.HPUD_ITS ---
Surgery/Procedure H&P Update DATE OF PROCEDURE: June 07, 2023 DATE H&P PERFORMED: 05/30/23 H&P UPDATE INFORMATION: I have reviewed H&P completed within last 30 days, I have examined patient prior to procedure, No changes to prior documentation and H&P is in [facility] EMR on date indicated PLANNED PROCEDURE: Operation Date: 06/07/23 07:55 Proposed Procedures p Chris Robot Total Knee Arthroplasty(Left) - Catrina Yanez MD Related Problem List Diagnoses (1) Osteoarthritis of left knee: Qualifiers: Osteoarthritis type: primary Qualified Code(s): M17.12 - Unilateral primary osteoarthritis, left knee
[2023-06-07] MEDS: gabapentin 300 mg Capsule PO (06:56)
[2023-06-07] MEDS: CELEcoxib 200 mg Capsule 400 MG PO (06:56)
--- NOTE | 2023-06-07 07:14 | ANES.PREANE2 ---
Pre-Anesthetic Assessment Height/Weight: Height 1.78 m Weight 113.398 kg Temp Pulse Resp BP Pulse Ox O2 Del Method 97.6 F 74 16 132/101 94 Room Air 06/07/23 06:40 06/07/23 06:40 06/07/23 06:40 06/07/23 06:40 06/07/23 06:40 06/07/23 06:40 Operation Date: 06/07/23 07:55 Proposed Procedures p Chris Robot Total Knee Arthroplasty(Left) - Catrina Yanez MD Familial anesthetic complications: Demerol stopped his heart pre-surgery at age 21 (but they did the surgery anyway that day and he went home that day as well) Was Beta Mane taken within 24 hours: N/A Was Clonidine taken within 24 hours: N/A Last intake: Intake Last Liquid Date 06/06/23 Last Liquid Time 21:00 Last Solid Date 06/06/23 Last Solid Time 20:45 Social No alcohol and No tobacco Exam alert, oriented x 3, clear to auscultation bilaterally and regular rate & rhythm Airway Mallampati: Class IV Dentition: full Metabolic Hyperlipidemia and Morbid Obesity Anesthetic Plan ASA status: 3 Anesthesia: MAC and Regional (specify below) Risk of > 500 ml blood loss (7ml/kg in children): No Medications/Allergies Home Medications Medication Instructions Recorded Confirmed Last Taken Type cholecalciferol (vitamin D3) 25 25 mcg PO DAILY 06/24/20 06/06/23 06/06/23 History mcg (1,000 unit) capsule multivitamin 1 tab PO DAILY 02/17/22 06/06/23 06/06/23 History epinephrine 0.3 mg/0.3 mL 0.3 mg (0.3 mL) IM Q10M PRN 12/04/22 06/06/23 11/13/22 Rx injection, auto-injector (EpiPen anaphylaxis #2 ea 2-Sarabjit) atorvastatin 80 mg tablet 80 mg PO DAILY 01/23/23 06/07/23 06/06/23 History Hinged Knee Brace,LEFT #1 ea 02/09/23 04/28/23 Unknown Rx meloxicam 15 mg tablet 15 mg PO DAILY #90 tabs 02/09/23 06/06/23 05/31/23 Rx Allergies Allergy/AdvReac Type Severity Reaction Status Date / Time bee venom protein (honey bee) Allergy ALGY-Anaphy Verified 06/06/23 13:59 laxis codeine Allergy RASH Verified 06/06/23 13:59 ibuprofen [From Motrin] Allergy ITCHING Verified 06/06/23 13:59 Penicillins Allergy HIVES Verified 06/06/23 13:59 meperidine [From Demerol] AdvReac Mild STOPPED Verified 06/06/23 13:59 HEART Current Medications Generic Name Dose Route Start Last Admin Trade Name Geraldq PRN Reason Stop Dose Admin Sodium Chloride 1,000 mls @ 30 mls/hr 06/07/23 06:30 06/07/23 06:53 Sodium Chloride 0.9% IV 06/08/23 06:29 30 mls/hr .Q24H HAN Administration PFSH Anesthesia Medical History Osteoarthritis of left knee History of COVID-19 Allergy to bee sting Hyperlipidemia Bone spur of left foot Bone spur of right foot Temporal arteritis syndrome Surgical History H/O knee surgery Left meniscus. Right meniscus. History of back surgery L4-L5 History of appendectomy H/O removal of cyst BEHIND EAR Family History Family/Other Cancer Social History Smoking and tobacco/nicotine status: never used tobacco/nicotine Alcohol intake: never Substance/Drug Use: never Data Anesthesia Cardiac Studies: No Data to Display
--- NOTE | 2023-06-07 07:16 | ANES.PROC ---
Anesthesia Procedures Procedure/Date: 06/07/23 Nerve Block ^: Nerve Block 1: Main Anesthesia: spinal anesthesia block Time Out Performed: Yes Consent: requested by attending/covering physician, from patient, from other, risks and benefits reviewed and patient agrees to proceed Nerve block location: adductor canal (L) Anesthesia monitors applied: pulse oximetry, EKG, BP cuff and oxygen Nerve block position: supine Anesthetic Used: ropivicaine 0.5% (30 ml) and with decadron (4 mg) Ultrasound used to: recognize landmarks and visualize and ID femerol nerve Nerve Stimulator Used?: No Interscalene/Femoral BLK: 4 stimuplex 21 g needle used for position and inplane approach, visualize local anesthetic spread and no vascular puncture identified Injection: neg aspiration of heme Patient Tolerated Procedure: well Complications: none
[2023-06-07] MEDS: ceFAZolin 2,000 MG in sodium chloride 0.9% (plus) 50 ML 100 MG IV (08:12)
[2023-06-07] MEDS: tranexamic acid 1,000 mg/10mL SDV 1000 MG IV (08:55)
[2023-06-07] MEDS: vancomycin 1,000 MG SDV 2000 MG IRRIGATION (09:25)
[2023-06-07] MEDS: BUPivacaine 0.5% INJ 30 mL 20 ML INJECTION (09:26)
[2023-06-07] MEDS: vancomycin 1,000 MG SDV 1000 MG XX (09:26)
[2023-06-07] MEDS: BUPivacaine liposome 13.3 mg/mL SDV 10 mL 266 MG INFILTRATI (09:26)
--- NOTE | 2023-06-07 11:19 | PM.OP ---
Operative Report Date of procedure: June 07, 2023 Pre-op diagnosis: Left knee osteoarthritis with valgus deformity and flexion contracture Post-op diagnosis: Left knee osteoarthritis with valgus deformity and flexion contracture Post-op findings: Significant osteoarthritis of the left knee Procedure done: Left total knee arthroplasty with Chris guidance Implants: The [place] total knee system with a size 5 triathlon beaded cruciate retaining femur left, a triathlon titanium tibial component size 6 beaded, a triathlon X3 tibial bearing CS insert size 6 X 9 mm and a beaded triathlon titanium asymmetric patella size 38 x 10 mm Specimens removed/disposition: Bone, disposed of Pathology: None Surgeon: Catrina Yanez MD Mining Technician: Belle Vazquez, nurse practitioner, who services were essential for positioning, retraction, closure, and completion of the surgical procedure Anesthesia: General (Intubated, following failed spinal attempt, ASA 3) Estimated blood loss (mL): 50 Tourniquet time (min): 0 (Not utilized) IV fluids (mL): 1,000 Urine output (mL): 300 Complications: None Findings: Severe degenerative osteoarthritis with valgus deformity Condition: stable Disposition: PACU (Then to floor for postoperative rehabilitation and pain management) Brief History: This 62-year-old gentleman presented with complaints of left knee pain. He had difficulties with activities of daily living. He had chronic pain over several years, but had worsening of the pain prior to his decision for proceeding with total knee arthroplasty. The patient has failed conservative management with ponr-opu-[id number] knee sleeve, home therapy program, dlpc-zql-jzmrhmf anti-inflammatories, activity modification, formal physical therapy, and injection therapy. When the patient was seen in the office, risks and complications of surgery were discussed with him. Consents were signed and questions were answered. He presents today for same-day surgery in the form of left total knee arthroplasty with Chris guidance. Procedure: The patient was brought to the operating theater, and after undergoing attempted spinal anesthetic, general anesthesia, intubated, ASA 3 was administered, with supplemental adductor canal block. The left lower extremity was prepped with Dura-Prep and draped in usual fashion following placement of a tourniquet high on the leg. The leg was then draped free.? Tourniquet was not elevated during the case.? A surgical pause was performed, and at the time of the surgical pause, we confirmed the site and side of surgery. Additionally, we confirmed the appropriate and timely administration of preoperative antibiotics, Ancef 2 g.? The availability of equipment was confirmed, and the patient's identity was verbalized as well. Following the surgical pause, an incision was made centering over the patella continuing proximally and distally as necessary to allow access to the knee joint. Dissection continued through skin and soft tissues using a scalpel. Hemostasis was obtained using electrocautery. The skin incision was followed by a median parapatellar arthrotomy. The leg was extended and the patella was able to be displaced laterally.? Appropriate arrays and markers were placed in appropriate position for use of the Chris.? Preoperative planning had been accomplished and was discussed in detail with the Chris hotel services sales representative.? Intraoperative mapping of the femur and tibia was accomplished after the arrays were placed.? Internal markers were also placed.? Once we had accomplished the Chris mapping, we began the appropriate resections for placement of the prosthesis.? The plan was for a cruciate retaining right total knee arthroplasty. Once appropriate mapping had been accomplished retraction was established using manual retraction by surgical technicians and also the Chris leg positioner and retractors.? The knee was evaluated.? There was significant osteoarthritic change as well as a slight varus deformity.? Appropriate bone resection was accomplished using the Chris.? The femur was sized to a size 5.? Following femoral cuts, attention was directed to the tibia.? Osteophytes were removed prior to this portion of the procedure.? We had performed a minimal medial release at the beginning of the procedure to allow for placement of the array.? Proximal tibia was evaluated, and it was felt that appropriate size for the tibia was a size 6.? Tray was noted to fit nicely with good coverage.? Rim fit was accomplished with the size 6. A trial reduction was accomplished after osteophytes have been removed as well as the medial and lateral menisci.? We had removed the anterior cruciate ligament at the beginning of the case and preserved the posterior cruciate ligament.? Trial reduction was accomplished with a size 5 femoral cruciate retaining component, a size 6 tibial tray and a size 6 CS tibial bearing insert which was 9 mm.? Secondary to the balancing of the knee, we elected to place the 9 mm insert for the actual component. Alignment was felt to be appropriate as well.? Trial components were removed after the femur had been drilled.? Prior to removal of the tibial tray which had been pinned in position with appropriate rotation as determined by the Chris plan, we broached the tibia.? Subsequently, the 4 drill holes were made for the prosthetic component.? All trial components were removed, and the wound was irrigated.? Plans were made for insertion of the prosthetic components.? Prior to this, the patella was manually prepared.? After resection of the articular surface with the jigging system, it was measured and measured a 38 mm patella.? We resected approximately 10 mm of patella.? Patellar height was restored with the patellar component. Once again, the wound was irrigated.? The Tritanium tibia was impacted into position.? The beaded femur was then impacted into position in a cementless fashion. The CS tibial insert was placed prior to placement of the femoral component. The patella was pressed into position with a patellar clamp.? Exparel was injected about the components deep and superficially.? The knee was then copiously irrigated with betadine and saline and suctioned dry. Attention was then directed to closure. Closure was accomplished with 0 Vicryl in the fascial tissues.? The suture line of 0 Vicryl was supplemented with strata fix, #1, with a running stitch from proximal to distal and a second running stitch from distal to proximal.? This was followed by Surgiflo and vancomycin powder.? Following this, a 2-0 Monocryl was used in the subcutaneous tissues, and the skin was closed with 3-0 Strata fix.? Care was taken to assure an excellent subcutaneous as well as skin closure.? A sterile dressing was then placed consisting of Dermabond Prineo, OpSite, ABD, sterile soft roll, and an Kar wrap including over the foot. The patient was returned the Recovery Room in a satisfactory condition. X-rays were obtained and reviewed there.? The patient will be discharged to the floor for postoperative rehabilitation and pain management. Related Problem List Diagnoses (1) Osteoarthritis of left knee: (2) Valgus deformity, not elsewhere classified, left knee:
--- NOTE | 2023-06-07 11:37 | XRR_ITS ---
PROCEDURE INFORMATION: Exam: XR Left Knee Exam date and time: 06/07/2023 10:44 AM Age: 62 years old Clinical indication: Device placement; Joint replacement hardware; Prior surgery; Surgery date: Post-operative (0-2 days); Surgery type: Left total knee arthroplasty; Additional info: Status post left total knee arthroplasty TECHNIQUE: Imaging protocol: Radiologic exam of the left knee. Views: 1 or 2 views. COMPARISON: CT knee LT [facility] [id number] 05/23/2023 4:29 PM FINDINGS: Bones/joints: Status post total knee arthroplasty with intact hardware and adequate alignment. No acute fracture or dislocation. Joint effusion with air expected in the immediate postop setting. Soft tissues: Regional soft tissue swelling and air are expected in the immediate postoperative setting. XR/XR knee LT 1-2V [id number] IMPRESSION: Status post left total knee arthroplasty.
--- NOTE | 2023-06-07 12:10 | ANE.PACU2 ---
Inpatient post-anesthesia follow up: Airway intact: Yes Vital signs: Temperature 97.8 F Pulse Rate 68 Respiratory Rate 19 Blood Pressure 124/73 Pulse Oximetry 95 Oxygen Delivery Me thod Room Air Oxygen Flow Rate 2 Fraction of Inspir ed Oxygen Hydration adequate: Yes Nausea and vomiting: No Pain level: 1 Mental status: Baseline
[2023-06-07] MEDS: chlorhexidine gluconate 0.12% Btl 473 mL 30 ML MUCOUS MEM ×3 (12:44→20:51)
[2023-06-07] MEDS: tranexamic acid 1,000 MG/100 ML PREMIX 600 MG IV (15:34)
[2023-06-07] MEDS: ceFAZolin 3,000 MG in sodium chloride 0.9% (100 ml) 100 ML 200 MG IV ×2 (15:51→23:32)
[2023-06-07] MEDS: oxyCODONE 5 mg IR Tab/Cap PO (15:55)
[2023-06-07] MEDS: mupirocin oint 22 gm 1 APPLIC NASAL (17:10)
[2023-06-07] MEDS: sennosides-docusate Tablet 2 TAB PO (17:10)
[2023-06-07] MEDS: iron polysaccharide complex 150 mg Capsule PO (18:12)
[2023-06-08] VITALS: BP 164/71; PULSE 81; RESP 18; TEMP 36.6; O2SAT 92
--- NOTE | 2023-06-08 00:30 | PC.NURSE ---
This nurse d/c pt kumar. Pt tolerated well. Urinal provided to pt and instructed to use and then notify nurse when voided for first time
[2023-06-08 03:26] VITALS: RESP 16
[2023-06-08] MEDS: oxyCODONE 5 mg IR Tab/Cap PO (03:26)
[2023-06-08 03:31] VITALS: BP 146/69; PULSE 79; RESP 18; TEMP 36.6; O2SAT 96
[2023-06-08] MEDS: acetaminophen 1,000 MG/100 ML PIGGYBACK 400 MG IV (05:01)
[2023-06-08 05:14] LABS: Basophils % 0.1 %; Hematocrit 41.2 % (37-53); Lymphocytes # 1.5 10^3/uL (0.8-4.8); Lymphocytes % 8.1 %; Mean Corpuscular HGB Conc 33.3 g/dL (30-55); Mean Corpuscular Hemoglobin 29.9 pg (27-33); Mean Platelet Volume 9.4 fL (7.4-10.4); Monocytes # 1.5 10^3/uL (0.2-0.9); Monocytes % 8.6 %; Neutrophils % 82.8 %; Nucleated Red Blood Cells % 0 %; Platelet Count 241 10^3/cmm (157-399); Red Blood Count 4.58 10^6/uL (3.85-5.65); Red Cell Distribution Width 12.9 % (12.1-15.1); White Blood Count 17.99 10^3/uL (3.29-11.43)
[2023-06-08 05:41] LABS: Anion Gap 14.5 (5-19); Blood Urea Nitrogen 18 mg/dL (8-23); Calcium 8.7 mg/dL (8.5-10.5); Carbon Dioxide 27 mmol/L (22-29); Chloride 100 mmol/L (98-107); Creatinine Clr Calc Pharmacy 122.7514; Glucose 239 mg/dL (65-115); Osmolality Calculated 294 mOsm/kg (285-295); Potassium 4.5 mmol/L (3.5-5.1); Sodium 137 mmol/L (136-145)
[2023-06-08 07:20] VITALS: BP 177/83; PULSE 78; RESP 16; TEMP 36.8; O2SAT 92
[2023-06-08 08:02] VITALS: PULSE 76; O2SAT 94
[2023-06-08] MEDS: aspirin 325 mg EC Tablet PO (08:26)
[2023-06-08] MEDS: iron polysaccharide complex 150 mg Capsule PO (08:27)
[2023-06-08] MEDS: sennosides-docusate Tablet 2 TAB PO (08:27)
[2023-06-08] MEDS: atorvastatin 40 mg Tablet PO (08:27)
[2023-06-08] MEDS: meloxicam 7.5 mg tablet 15 MG PO (08:28)
[2023-06-08] MEDS: ceFAZolin 3,000 MG in sodium chloride 0.9% (100 ml) 100 ML 200 MG IV (08:29)
[2023-06-08] MEDS: chlorhexidine gluconate 0.12% Btl 473 mL 30 ML MUCOUS MEM (09:07)
[2023-06-08] MEDS: cholecalciferol (vitamin D3) 1,000 unit Tablet 1000 UNIT PO (09:07)
--- NOTE | 2023-06-08 09:07 | PC.CHAP ---
Pastoral Care Encounter/Spiritual Assessment Type of Contact [] Declined auto phone installer visit [] Patient/Family/Request visit [] Outpatient visit [] Follow-up visit [] Physician referral [] Code/Alert [] Routine visit [] Staff referral [] Actively dying [x] Patient sleeping [] Family support [] [] Out of room [] Palliative care [] [] Receiving care in room [] Pre-surgical visit [] Trauma [] Long length of stay [] ICU visit [] Other: Relational/Emotional Strength [] Patient feels connected with others/family/visitors/staff [] Distress [] Loneliness/isolation [] Abandonment Spirituality of Patient [] Person of Jackelyn [] Attends Synagogue of their Jackelyn [] Believes in Prayer [] Reads Bible or Hoahaoism materials [] There are Spiritual issues to be addressed Pull Worker Interventions [] Prayer [] Active listening [] Non-anxious presence [] Spiritual/emotional support [] Crisis/trauma care [] Spiritual counseling [] Bereavement support [] Provided bereavement packet [] Provided Bible/devotional materials [] Provided toy/stuffed animal, coloring book to patient or family member [] Provided Communion [] Anointing/[place] [] Salvation [] Completed spiritual assessment [] Other: Impact on Illness or Injury [] Angry [] Fearful [] Anxious [] Often cries [] Exhaustion [] Unable to work [] Unable to attend alevism [] Unable to walk/stand [] Unable to read [] Unable to drive [] Unable to eat/drink [] Unable to sleep [] Unable to be with family [] Patient intubated [] Other: Summary Time spent with patient
[2023-06-08] MEDS: mupirocin oint 22 gm 1 APPLIC NASAL (09:08)
--- NOTE | 2023-06-08 09:09 | PC.CHAP ---
Pastoral Care Encounter/Spiritual Assessment Type of Contact [] Declined beauty shop manager visit [] Patient/Family/Request visit [] Outpatient visit [] Follow-up visit [] Physician referral [] Code/Alert [] Routine visit [] Staff referral [] Actively dying [] Patient sleeping [] Family support [] [] Out of room [] Palliative care [] [x] Receiving care in room [] Pre-surgical visit [] Trauma [] Long length of stay [] ICU visit [] Other: Relational/Emotional Strength [] Patient feels connected with others/family/visitors/staff [] Distress [] Loneliness/isolation [] Abandonment Spirituality of Patient [] Person of Jackelyn [] Attends Scientology of their Jakcelyn [] Believes in Prayer [] Reads Bible or Pentecostal materials [] There are Spiritual issues to be addressed Staffing Director Interventions [] Prayer [] Active listening [] Non-anxious presence [] Spiritual/emotional support [] Crisis/trauma care [] Spiritual counseling [] Bereavement support [] Provided bereavement packet [] Provided Bible/devotional materials [] Provided toy/stuffed animal, coloring book to patient or family member [] Provided Communion [] Anointing/[place] [] Salvation [] Completed spiritual assessment [] Other: Impact on Illness or Injury [] Angry [] Fearful [] Anxious [] Often cries [] Exhaustion [] Unable to work [] Unable to attend yazidi [] Unable to walk/stand [] Unable to read [] Unable to drive [] Unable to eat/drink [] Unable to sleep [] Unable to be with family [] Patient intubated [] Other: Summary Time spent with patient
[2023-06-08] MEDS: acetaminophen 500 mg Tablet 1000 MG PO (13:30)
--- NOTE | 2023-06-08 13:45 | P.DS_ITS ---
Discharge Providers Date of Admission: 06/07/23 12:00 Date of Discharge: June 08, 2023 Attending Provider at Admission: Catrina Yanez MD Attending Provider at Discharge: Catrina Yanez MD Primary Care Provider: Tiara Balderas DO Diagnoses at Discharge Discharge Diagnosis (1) Osteoarthritis of left knee: Status: Acute Qualifiers: Osteoarthritis type: primary Qualified Code(s): M17.12 - Unilateral primary osteoarthritis, left knee (2) Valgus deformity, not elsewhere classified, left knee: Status: Acute (3) Status post total left knee replacement not using cement: Status: Acute Permanent problem details: Date of procedure: June 07, 2023 Diagnosis: Left knee osteoarthritis with valgus deformity and flexion contra cture Procedure done: Left total knee arthroplasty with Chris guidance Implants: The [place] total knee system with a size 5 triathlon beaded cruciate retaining femur left, a triathlon titanium tibial component size 6 beaded, a triathlon X3 tibial bearing CS insert size 6 X 9 mm and a beaded triathlon titanium asymmetric patella size 38 x 10 mm Reason for Visit Reason for Visit: M17.12 Brief History: This 62-year-old gentleman presented with complaints of left knee pain. He had difficulties with activities of daily living. He had chronic pain over several years, but had worsening of the pain prior to his decision for proceeding with total knee arthroplasty. The patient has failed conservative management with nsks-zaz-[id number] knee sleeve, home therapy program, vqto-ueo-letjals anti- inflammatories, activity modification, formal physical therapy, and injection therapy. When the patient was seen in the office, risks and complications of surgery were discussed with him. Consents were signed and questions were answered. He presents today for same-day surgery in the form of left total knee arthroplasty with Chris guidance. Hospital Course Hospital Course Patient was admitted to the hospital under observation status following same-day surgery for left total knee arthroplasty. The procedure was well-tolerated, and he worked well with physical therapy postoperatively. He was felt to be safe and appropriate for discharge to home. There was no evidence of DVT and no evidence of neurovascular compromise. Therefore, the patient was discharged home to follow-up with me as scheduled. He and his family were in agreement with this. Physical Exam Const: COMMON NORMALS: no acute distress, average body habitus, patient oriented x3 and alert GENERAL APPEARANCE: cooperative and comfortable ORIENTATION/CONSCIOUSNESS: Yes awake HENMT: COMMON NORMALS: normocephalic and atraumatic HEAD & SCALP: normocephalic and atraumatic Eye: GENERAL EYE: appearance normal, both eyes and all related structures Chest: COMMONS NORMALS: normal inspection of the chest Resp: COMMON NORMALS: normal respiratory effort EFFORT & INSPECTION: Yes able to speak in complete sentences and Yes symmetric chest movement Extremity: LEFT LOWER EXTREMITY: Yes knee joint (Large outer dressing is removed, minimal swelling) Left knee: Yes inspection (No significant ecchymosis), Yes palpation (Minimal tenderness), Yes ROM (Able to straight leg raise) and Yes neurovascular exam (No evidence of DVT) Neuro: COMMON NORMALS: patient oriented x3 SENSORIUM/ORIENTATION: Yes alert Psych: COMMON NORMALS: mental status grossly normal APPEARANCE: Yes grossly normal ATTITUDE: Yes calm and Yes engaged ATTENTION/CONCENTRATION: Yes attention grossly intact Skin: COMMON NORMALS: no rashes or lesions noted GENERAL SKIN EXAM: no rashes or lesions noted Urinary Catheter Management: Cameron: Cath Placed During This Visit: yes, but has since been removed by the nurse Reason for Continuing Indwelling Catheter: Perioperative Use in Selected Surgeries Urinary Catheter Date of Insertion: 06/07/23 Urinary Catheter Time of Insertion: 08:50 Date Urinary Catheter Removed: 06/08/23 Time Urinary Catheter Discontinued: 00:29 Discharge Data Studies Completed and Pending Completed Studies During Hospitalization Category Date Time Status XR knee LT 1-2V 60844 Routine Exams 06/07/23 11:37 Completed Pending at discharge Category Date Time Status Complete Blood Count w/Auto AM LABS Lab 06/09/23 04:00 Ordered Complete Blood Count w/Auto AM LABS Lab 06/10/23 04:00 Ordered Radiology Impressions Knee X-Ray 06/07/23 11:37 IMPRESSION: Status post left total knee arthroplasty. Laboratory Results WBC 17.99 10^3/uL (3.29-11.43) H 06/08/23 04:47 RBC 4.58 10^6/uL (3.85-5.65) 06/08/23 04:47 Hgb 13.70 g/dL (11.27-16.99) 06/08/23 04:47 Hct 41.2 % (37-53) 06/08/23 04:47 MCV 90.0 fl (82-101) 06/08/23 04:47 MCH 29.9 pg (27-33) 06/08/23 04:47 MCHC 33.3 g/dL (30-55) 06/08/23 04:47 RDW 12.9 % (12.1-15.1) 06/08/23 04:47 Plt Count 241 10^3/cmm (157-399) 06/08/23 04:47 MPV 9.4 fL (7.4-10.4) 06/08/23 04:47 Neut % (Auto) 82.8 % 06/08/23 04:47 Lymph % (Auto) 8.1 % 06/08/23 04:47 [place] % (Auto) 8.6 % 06/08/23 04:47 Eos % (Auto) 0.0 % 06/08/23 04:47 Baso % (Auto) 0.1 % 06/08/23 04:47 Neut # (Auto) 14.90 10^3/uL (1.8-7.7) H 06/08/23 04:47 Lymph # (Auto) 1.5 10^3/uL (0.8-4.8) 06/08/23 04:47 [place] # (Auto) 1.5 10^3/uL (0.2-0.9) H 06/08/23 04:47 Eos # (Auto) 0.0 10^3/uL (0.0-0.8) 06/08/23 04:47 Baso # (Auto) 0.0 10^3/uL (0.0-0.1) 06/08/23 04:47 Nucleated RBC % (auto) 0 % 06/08/23 04:47 Nucleated RBCs # 0.0 /100WBC 06/08/23 04:47 Sodium 137 mmol/L (136-145) 06/08/23 04:47 Potassium 4.5 mmol/L (3.5-5.1) 06/08/23 04:47 Chloride 100 mmol/L (98-107) 06/08/23 04:47 Carbon Dioxide 27 mmol/L (22-29) 06/08/23 04:47 Anion Gap 14.5 (5-19) 06/08/23 04:47 BUN 18 mg/dL (8-23) 06/08/23 04:47 Creatinine 0.8 mg/dL (0.7-1.2) 06/08/23 04:47 GFR Calculation 98.0 mL/min (90-130) 06/08/23 04:47 Glucose 239 mg/dL (65-115) H 06/08/23 04:47 Calculated Osmolality 294 mOsm/kg (285-295) 06/08/23 04:47 Calcium 8.7 mg/dL (8.5-10.5) 06/08/23 04:47 Vitals Last Vital Signs Temp 98.2 F 06/08/23 07:20 Pulse 76 06/08/23 08:02 Resp 16 06/08/23 07:20 BP 177/83 06/08/23 07:20 Pulse Ox 94 06/08/23 08:02 O2 Del Method Room Air 06/08/23 08:02 O2 Flow Rate 2 06/07/23 13:40 Discharge Plan Discharge Patient Disposition: Home Health Service Condition: Stable Prescriptions: New acetaminophen 500 mg Tablet 1,000 mg PO Q8H 15 Days Qty: 90 0RF aspirin 325 mg Tablet,Delayed Release (Dr/Ec) 325 mg PO DAILY 30 Days Qty: 0 0RF oxycodone 5 mg Tablet 5 - 10 mg PO Q4H PRN (Reason: Moderate Pain) 7 Days Qty: 30 0RF Continued epinephrine [EpiPen 2-Sarabjit] 0.3 mg/0.3 mL auto-injector 0.3 mg IM Q10M PRN (Reason: anaphylaxis) Qty: 2 1RF Rx Instructions: for 3 doses 340 B cholecalciferol (vitamin D3) 25 mcg (1,000 unit) capsule 25 mcg PO DAILY (DME) Hinged Knee Brace,LEFT See Rx Instructions .Route .MEDSUPPLY Qty: 1 0RF Rx Instructions: As directed atorvastatin 80 mg tablet 80 mg PO DAILY Rx Instructions: TAKE 1 TABLET BY MOUTH AT BEDTIME pantoprazole 40 mg tablet,delayed release (DR/EC) 40 mg PO BID meloxicam 15 mg tablet 15 mg PO DAILY Qty: 90 0RF multivitamin Tablet 1 tab PO DAILY Discharge Orders: Discharge Order (Routine); Ordered 06/08/23 Ordered By: Catrina Yanez Other Ambulatory Orders: Physical Therapy Eval and Treat Outpatient (Order) Timeframe: 3 Days Facility: [facility] - Location: Physical Therapy [place] Ordered By: Catrina Yanez Referrals: Catrina Yanez MD [Physician] - 06/20/23 10:45 am Discharge Diet: Advance as tolerated and Usual diet Discharge Activity: Increase activity as tolerated, Use walker/crutches as instructed and As per PT/OT instructions Patient Instructions: Aspirin (By mouth), Oxycodone, Rapid Release (By mouth), Total Knee Replacement (DC), Opioid Safety Activity Restrictions/Additional Instructions: Weightbearing as tolerated. Gait training, strengthening, and ambulation per physical therapy. You may shower, but do not soak your knee in water. Ice and elevation. Maintain dressing until you are seen in the office Discharge Attestations Time Spent in Discharge Care*: greater than 30 min Specific Discharge Activities: educating patient, documenting/other paperwork and evaluating patient/reviewing data Quality Metrics Clinical Quality Measures [ No reported AMI, CVA or VTE this stay] Coding Level of Care Code Acute Code for Chg Fwd Diagnoses Primary osteoarthritis of left knee M17.12 Osteoarthritis type: primary Valgus deformity, not elsewhere classified, left knee M21.062 Status post total left knee replacement not using cement Z96.652
[2023-06-08 15:07] VITALS: PULSE 76; O2SAT 94
== END 2023-06-08 15:40 | disposition home health service (06) ==
LOC: MEDSURG 12:01
PROVIDERS: Nurse Practitioner; Admitting Provider Specialist; PCP Family Medicine; Visit Provider Specialist
PROC: 8E0Y0CZ Robotic Assisted Procedure of Lower Extremity, Open Approach (ICD-10-PCS; CPT 27447; principal; 2023-06-07 07:55)
DX: M17.12 Unilateral primary osteoarthritis, left knee (principal); M21.062 Valgus deformity, not elsewhere classified, left knee; M24.562 Contracture, left knee; E78.5 Hyperlipidemia, unspecified; E66.01 Morbid (severe) obesity due to excess calories; Z68.37 Body mass index [BMI] 37.0-37.9, adult; Z86.16 Personal history of COVID-19
CPT/HCPCS: 20985; 27447; 36415; 51702; 73560; 80048; 85025; 97110; 97116; 97161; 97165; 97530; C1776; C9290; G0378; J0131; J0690; J1100; J1170; J2405; J2704; J2710; J2795; J3010; J3370; J3490; J7030

== ENCOUNTER 2023-06-14 16:12 | Outpatient (RCR) | payer BC, SELFPAY | END 2023-07-10 23:59 | disposition home or self-care (01) | LOC: SPT 16:12 | PROVIDERS: Visit Provider Specialist | DX: Z47.1 Aftercare following joint replacement surgery (principal); Z96.652 Presence of left artificial knee joint | CPT/HCPCS: 97110; 97161; G0283 ==

== ENCOUNTER 2023-06-17 12:22 | Emergency (ER) | payer BC, SELFPAY ==
[2023-06-17 12:29] VITALS: BP 143/81; PULSE 78; RESP 18; TEMP 36.5; O2SAT 98; BMI 35.3
--- NOTE | 2023-06-17 12:42 | ED_ITS ---
HPI - Extremity Problem General: Chief complaint: Extremity Injury, Lower Stated complaint: left leg pain Time Seen by Provider: 06/17/23 12:41 History of Present Illness: 62-year-old male presents emergency depa rtment to have his left knee reevaluated he is postoperative left total knee replacement that was completed by Dr. Chris orthopedics on 06/07/2023. He states that he does have bruising to the lower leg there is no obvious drainage or signs of infection. He states that he became concerned because the bruising has become more distal from what it was previously. He states he has been to physical therapy and he noticed that the bruising was worse to his calf and lower leg. Review of Systems General: Reports: 10 or more systems reviewed and unremarkable except in HPI and below Musc: Reports: extremity swelling Skin/Breast: Reports: other (Postoperative bruising noted to the left knee and lower extremity) [facility] ED PFSH: Medical History Osteoarthritis of left knee History of COVID-19 Allergy to bee sting Hyperlipidemia Bone spur of left foot Bone spur of right foot Temporal arteritis syndrome Surgical History H/O knee surgery Left meniscus. Right meniscus. History of back surgery L4-L5 History of appendectomy H/O removal of cyst BEHIND EAR Family History Family/Other Cancer Social History Smoking and tobacco/nicotine status: never used tobacco/nicotine Alcohol intake: never Substance/Drug Use: never Physical Exam Narrative: EXAM NARRATIVE: Constitutional: the patient appears well nourished and of normal development. Vital signs as documented. No acute distress at present. Alert and oriented-to person, place, time and situation. Head, eyes, ears, nose, mouth, throat: Normocephalic, atraumatic. Pupils-equal, round, reactive to light. No scleral icterus. Normal-appearing external ears. Normal appearing nose, no drainage. Neck: Supple, trachea is midline, no lymphadenopathy, no jugular venous distension, Lungs: clear to auscultation to all lung gutiérrez. Symmetrical rise and fall of chest, no obvious signs of increased work of breathing at present. Cardiac: Regular rate and rhythm, positive S1, S2. No murmurs, rubs or gallops that I can appreciate Abdomen: Soft, non-tender to palpation, normal active bowel sounds to all quadrants. No palpable masses, no organomegaly and abdominal bruits. Extremities: 2+ pulses in the upper extremities that are equal bilaterally, 2+ pulses in the lower extremities that are equal bilaterally. Brawny edema to the left lower extremity, moves all extremities well, sensation to all extremities. There is a postsurgical dressing noted to the midline of the left knee, there is no obvious drainage there is moderate bruising to the knee upper thigh and lower leg consistent with normal postoperative bruising. Skin: Warm, dry, intact. Course Vital Signs: Vital signs: Vital Signs Temperature 97.7 F 06/17/23 12:29 Pulse Rate 78 06/17/23 12:29 Respiratory Rate 18 06/17/23 12:29 Blood Pressure 143/81 06/17/23 12:29 Pulse Oximetry 98 06/17/23 12:29 Oxygen Delivery Me thod Room Air 06/17/23 12:29 MDM - Extremity (Nontraumatic) Medical Decision Making Physical exam completed and documented I did review the patient's previous operative report by Dr. Chris as well as her discharge summary. No acute adverse postoperative findings noted. Discussed and encouraged the patient to have continued periods of cold compress usage and to follow-up the discharge instructions of Dr. Ynaez. Medical Records I reviewed the patient's medical records. No radiology studies performed this visit Discharge Plan Discharge Patient Disposition: Home Clinical Impression: Postoperative pain of left knee Condition: Stable Prescriptions: No Action epinephrine [EpiPen 2-Sarabjit] 0.3 mg/0.3 mL auto-injector 0.3 mg IM Q10M PRN (Reason: anaphylaxis) Qty: 2 1RF Rx Instructions: for 3 doses 340 B cholecalciferol (vitamin D3) 25 mcg (1,000 unit) capsule 25 mcg PO DAILY (DME) Hinged Knee Brace,LEFT See Rx Instructions .Route .MEDSUPPLY Qty: 1 0RF Rx Instructions: As directed atorvastatin 80 mg tablet 80 mg PO BEDTIME aspirin 325 mg Tablet,Delayed Release (Dr/Ec) 325 mg PO DAILY 30 Days Qty: 0 0RF meloxicam 15 mg tablet 15 mg PO DAILY Qty: 90 0RF oxycodone 5 mg tablet 5 - 10 mg PO Q4H PRN (Reason: Pain (Scale Score 7-10)) acetaminophen 500 mg tablet 1,000 mg PO Q8H PRN (Reason: Pain) multivitamin Tablet 1 tab PO DAILY Discharge Orders: Discharge ED (Routine); Ordered 06/17/23 Ordered By: Sebastian Greene Referrals: Tiara Balderas DO [Primary Care Provider] - Discharge Diet: Usual diet Discharge Activity: Limit activity as instructed Patient Instructions: Opioid Safety, Pain Management Activity Restrictions/Additional Instructions: Activity Restrictions/Additional Instructions: Thank you for choosing [facility] for your healthcare needs today. Please realize that you were seen in the Emergency Department and that we are providing you with an emergency medical screening exam and this may not be a complete and all inclusive of all the testing and or medical work-up that you may need to determine your ailment or severity of your illness. It is very important that you follow-up as instructed with your Primary care provider or Specialist for additional evaluation and to discuss your medical treatment plan. You may return to the Emergency Department should you have concerns or if your condition changes or worsens in any way. Coding Level of Care Code ED [employer] Supervisor for Everardo Cantu
== END 2023-06-17 13:37 | disposition home or self-care (01) ==
PROVIDERS: Emergency Provider Internal Medicine; PCP Family Medicine
DX: G89.18 Other acute postprocedural pain (principal); M25.562 Pain in left knee; Z79.82 Long term (current) use of aspirin; E78.5 Hyperlipidemia, unspecified
CPT/HCPCS: 99281

== ENCOUNTER → 2023-06-20 10:29 | Outpatient (BNVA) | payer BC, SELFPAY | PROVIDERS: PCP Family Medicine; Visit Provider Specialist | DX: Z96.652 Presence of left artificial knee joint (principal); M17.12 Unilateral primary osteoarthritis, left knee | CPT/HCPCS: 73560; 73565 ==

== ENCOUNTER 2023-07-11 06:00 | Outpatient (RCR) | payer BC, SELFPAY | END 2023-08-10 23:59 | disposition home or self-care (01) | LOC: SPT 06:00 | PROVIDERS: PCP Family Medicine; Visit Provider Specialist | DX: Z47.1 Aftercare following joint replacement surgery (principal); Z96.652 Presence of left artificial knee joint | CPT/HCPCS: 97110 ==

== ENCOUNTER → 2023-08-27 09:10 | Outpatient (BNVA) | payer BC, SELFPAY | PROVIDERS: PCP Family Medicine; Visit Provider Specialist | DX: Z96.652 Presence of left artificial knee joint (principal) | CPT/HCPCS: 73560; 73565 ==

== ENCOUNTER → 2024-01-07 09:29 | Outpatient (BNVA) | payer BC, SELFPAY | PROVIDERS: PCP Family Medicine Adult Medicine; Visit Provider Specialist | DX: Z96.652 Presence of left artificial knee joint (principal); S82.002A Unspecified fracture of left patella, initial encounter for closed fracture; X58.XXXA Exposure to other specified factors, initial encounter | CPT/HCPCS: 73560; 73565 ==

== ENCOUNTER → 2024-05-19 08:19 | Outpatient (BNVA) | payer BC, SELFPAY | PROVIDERS: PCP Family Medicine Adult Medicine; Visit Provider Specialist | DX: Z96.652 Presence of left artificial knee joint (principal); Z98.890 Other specified postprocedural states; S82.002D Unspecified fracture of left patella, subsequent encounter for closed fracture with routine healing; X58.XXXD Exposure to other specified factors, subsequent encounter | CPT/HCPCS: 73560; 73565 ==

== ENCOUNTER → 2024-07-21 09:21 | Outpatient (BNVA) | payer BC, SELFPAY | PROVIDERS: PCP Family Medicine Adult Medicine; Visit Provider Family Medicine | DX: E11.69 Type 2 diabetes mellitus with other specified complication (principal); E66.9 Obesity, unspecified; E78.2 Mixed hyperlipidemia; Z12.5 Encounter for screening for malignant neoplasm of prostate; Z76.89 Persons encountering health services in other specified circumstances; I10 Essential (primary) hypertension; Z78.9 Other specified health status; Z98.890 Other specified postprocedural states; K21.9 Gastro-esophageal reflux disease without esophagitis; K22.2 Esophageal obstruction; M62.08 Separation of muscle (nontraumatic), other site | CPT/HCPCS: 80053; 80061; 82043; 83036; 84443; 85025; G0103 ==

== ENCOUNTER 2024-11-14 08:28 | Outpatient (CLI) | payer BC, SELFPAY ==
--- NOTE | 2024-11-14 09:15 | FL_ITS ---
WS: [id number] Barium swallow and esophagram, 11/14/2024 Clinical Data: Feeling of fullness and food sticking in lower esophagus. Comparison: None. Fluoroscopy time: 1min [id number] # of spot films: 6 Findings: The patient swallowed the thick and thin barium, and it flowed through the hypopharynx without hesitation. No stricture, mass, polyp or erosion was seen. No aspiration or penetration occurred The barium entered the esophagus and there was normal motility throughout. No reflux, stricture, polyp, mass, erosion or ulcer was noted. There was a small sliding hiatal hernia without significant narrowing. The barium passed normally into the stomach. FL/FL barium swallow [id number] Impression: Small sliding hiatal hernia.
== END 2024-11-14 08:29 | disposition home or self-care (01) ==
LOC: RAD 08:29
PROVIDERS: PCP Family Medicine; Visit Provider Surgery
DX: R13.10 Dysphagia, unspecified (principal); K44.9 Diaphragmatic hernia without obstruction or gangrene
CPT/HCPCS: 74220

== ENCOUNTER 2024-11-27 06:54 | Day surgery (SDC) | payer BC, SELFPAY ==
[2024-11-27 07:08] VITALS: BP 140/84; PULSE 66; RESP 16; TEMP 36.1; O2SAT 96; BMI 35.2
--- NOTE | 2024-11-27 07:19 | P.HPUD_ITS ---
Surgery/Procedure H&P Update DATE OF PROCEDURE: November 27, 2024 DATE H&P PERFORMED: 11/05/24 H&P UPDATE INFORMATION: I have reviewed H&P completed within last 30 days, I have examined patient prior to procedure, No changes to prior documentation, H&P is in [facility] EMR on date indicated and Risks and benefits of the procedure reviewed PLANNED PROCEDURE: Operation Date: 11/27/24 08:20 Proposed Procedures p EGD Dilation W/ Balloon 74942 K21.9(Not Applicable) - Drake Martinez MD
--- NOTE | 2024-11-27 07:34 | P.ANESASSM_ITS ---
Pre-Anesthetic Assessment Height/Weight: Height 1.78 m Weight 111.13 kg Temp Pulse Resp BP Pulse Ox O2 Del Method 97 F L 66 16 140/84 96 Room Air 11/27/24 07:08 11/27/24 07:08 11/27/24 07:08 11/27/24 07:08 11/27/24 07:08 11/27/24 07:08 Preop Diagnosis: Difficulty Swallowing Operation Date: 11/27/24 08:20 Proposed Procedures p EGD Dilation W/ Balloon 40445 K21.9(Not Applicable) - Drake Martinez MD Familial anesthetic complications: none Was Beta Mane taken within 24 hours: N/A Was Clonidine taken within 24 hours: N/A Last intake: Intake Last Liquid Date 11/26/24 Last Liquid Time 22:00 Last Solid Date 11/26/24 Last Solid Time 21:00 Social No alcohol and No tobacco Exam alert, oriented x 3, clear to auscultation bilaterally and regular rate & rhythm Airway Submandibular: within normal limits Cervical ROM: within normal limits Mallampati: Class II Dentition: full History/ROS No significant history except as noted and No significant complaints Pulmonary None reported CV/HEM Hypertension None reported Hepatic None reported GI Gastroesophageal Reflux Disease and Hiatal Hernia Metabolic Diabetes Mellitus [facility] [place] None reported Neuropsych None reported Anesthetic Plan ASA status: 3 Anesthesia: MAC Risk of > 500 ml blood loss (7ml/kg in children): No Medications/Allergies Home Medications ?Medication ?Instructions ?Recorded ?Confirmed ?Last Taken ?Type cholecalciferol (vitamin D3) 25 25 mcg PO DAILY 11/27/24 11/26/24 History mcg (1,000 unit) capsule multivitamin 1 tab PO DAILY 02/17/2211/1011/26/24 History epinephrine 0.3 mg/0.3 mL 0.3 mg (0.3 mL) IM Q10M PRN 12/04/22 11/27/24 11/26/24 Rx injection, auto-injector (EpiPen anaphylaxis #2 ea 2-Sarabjit) Hinged Knee Brace,LEFT #1 ea 02/09/23 11/27/2411/10 Rx acetaminophen 500 mg tablet 1,000 mg PO Q8H PRN Pain 0 06/17/23 11/27/24 11/26/24 History cinnamon bark 500 mg capsule 1,000 mg PO DAILY 5 11/27/24 11/26/24 History (Cinnamon) glucogold 1 cap PO DAILY 07/21/2411/1011/26/24 History omega 1-phg-ler-fish oil 1,200 mg 1 cap PO DAILY 07/2111/27/24 11/26/24 History (144 mg-216 mg) capsule (Fish Oil) losartan 25 mg tablet 25 mg PO DAILY #90 tabs 10/0311/27/24 11/26/24 Rx rosuvastatin 10 mg tablet 10 mg PO DAILY #100 tabs 11/0311/27/24 11/26/24 Rx sucralfate 100 mg/mL oral 10 ml PO BID 30 days #840 mL 11/05/24 11/27/24 11/26/24 Rx suspension Allergies Allergy/AdvReac Type Severity Reaction Status Date / Time bee venom protein (honey bee) Allergy ALGY-Anaphy Verified 11/27/24 07:09 laxis codeine Allergy RASH Verified 11/27/24 07:09 ibuprofen (From Motrin) Allergy ITCHING Verified 11/27/24 07:09 Penicillins Allergy HIVES Verified 11/27/24 07:09 metformin AdvReac Severe ADR-Diarrhe Verified 11/27/24 07:09 a meperidine (From Demerol) AdvReac Mild STOPPED Verified 11/27/24 07:09 HEART Current Medications Generic Name Dose Route Start Last Admin Trade Name Freq PRN Reason Stop Dose Admin Sodium Chloride 1,000 mls @ 15 mls/hr 11/27/24 07:08 11/27/24 07:20 Sodium Chloride 0.9% IV 11/28/24 07:07 15 mls/hr .Q24H PRN Administration COLONOSCOPY FLUIDS PFSH Anesthesia Medical History Hypertension, essential GERD with stricture without esophagitis hx of egd w/ dialations Statin intolerance Type 2 diabetes mellitus with obesity Obesity (BMI 30.0-34.9) Osteoarthritis of left knee Hyperplastic rectal polyp Allergy to bee sting History of COVID-19 Hyperlipidemia Temporal arteritis syndrome Surgical History Hx of colonoscopy 12.21.22 normal; repeat 10 yrs History of temporal artery biopsy had temporal arteritis--was on prednisone for 2017 Status post total left knee replacement not using cement Dr. Yanez. 06/07/23 Left knee osteoarthritis with valgus deformity and flexion contracture Procedure done: Left total knee arthroplasty with Chris guidance Implants: The [employer] total knee system with a size 5 triathlon beaded cruciate retaining femur left, a triathlon titanium tibial component size 6 beaded, a triathlon X3 tibial bearing CS insert size 6 X 9 mm and a beaded triathlon titanium asymmetric patella size 38 x 10 mm H/O knee surgery Left meniscus. Right meniscus. 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
[2024-11-27 08:35] VITALS: BP 127/78; PULSE 72; RESP 16; TEMP 36.1; O2SAT 92
--- NOTE | 2024-11-27 08:40 | ANE.PACU2 ---
Inpatient post-anesthesia follow up: Airway intact: Yes Vital signs: Temperature 97 F Pulse Rate 66 Respiratory Rate 16 Blood Pressure 140/84 Pulse Oximetry 96 Oxygen Delivery Me thod Room Air Oxygen Flow Rate Fraction of Inspir ed Oxygen Hydration adequate: Yes Nausea and vomiting: No Pain level: 1 Mental status: Baseline
[2024-11-27 08:50] VITALS: BP 136/76; PULSE 64; RESP 16; TEMP 36.1; O2SAT 95
== END 2024-11-27 09:18 | disposition home or self-care (01) ==
PROVIDERS: PCP Family Medicine; Visit Provider Surgery
DX: K21.9 Gastro-esophageal reflux disease without esophagitis (principal); K44.9 Diaphragmatic hernia without obstruction or gangrene; K21.00 Gastro-esophageal reflux disease with esophagitis, without bleeding; R13.10 Dysphagia, unspecified; E11.9 Type 2 diabetes mellitus without complications; I10 Essential (primary) hypertension; E66.9 Obesity, unspecified; Z68.35 Body mass index [BMI] 35.0-35.9, adult; E78.5 Hyperlipidemia, unspecified
CPT/HCPCS: 43239; 43255; 88305; J2371; J2704; J7030; J9999

== ENCOUNTER → 2025-02-16 09:39 | Outpatient (BNVA) | payer BC, SELFPAY | PROVIDERS: PCP Family Medicine; Visit Provider Family Medicine | DX: E78.2 Mixed hyperlipidemia (principal); I10 Essential (primary) hypertension; Z78.9 Other specified health status; E11.69 Type 2 diabetes mellitus with other specified complication; E66.9 Obesity, unspecified | CPT/HCPCS: 80061; 83036 ==